=== PATIENT | male | born 1960 | race Caucasian/White ===

== ENCOUNTER 2019-01-14 07:44 | Day surgery (SDC) | payer BC ==
[~2019-01-14] VITALS: Ht 177.8 cm; Wt 86.6 kg
[2019-01-14] VITALS (12 sets, daily range): BP systolic 90–117; BP diastolic 56–80
[2019-01-14] MEDS ORDERED: MIDAZolam 5mg/ml 2ml vial IV PRN (08:05)
[2019-01-14] MEDS ORDERED: diphenhydrAMINE 25mg capsule PO PRN (08:05)
[2019-01-14] MEDS ORDERED: normal saline 1,000 ML IV SCH (08:05)
[2019-01-14] MEDS ORDERED: fentaNYL/PF 50MCG/1 ML 2ML syringe IV PRN (08:10)
[2019-01-14] MEDS ORDERED: DIGO125T79 PO (08:25)
[2019-01-14] MEDS ORDERED: CARV25TA2 PO (08:25)
[2019-01-14] MEDS ORDERED: DILT90TA22 PO (08:25)
[2019-01-14] MEDS ORDERED: CHOL50004 PO (08:25)
[2019-01-14] MEDS ORDERED: FURO-150 PO (08:25)
[2019-01-14] MEDS ORDERED: POTA10TA19 PO (08:25)
[2019-01-14] MEDS ORDERED: MULT-1085 PO (08:25)
[2019-01-14] MEDS ORDERED: LISI2.5T2 PO (08:25)
[2019-01-14] MEDS ORDERED: APIX5TAB3 PO (08:25)
[2019-01-14 08:44] LABS: BASOPHILS % (AUTO) 0.7 % (0-1); EOSINOPHILS # (AUTO) 0.1 X10'3 (0-0.9); EOSINOPHILS % (AUTO) 2.9 % (0-6); HEMATOCRIT 44.7 % (42.0-52.0); HEMOGLOBIN 15.1 g/dl (14.0-17.9); LYMPHOCYTES # (AUTO) 1.5 X10'3 (1.1-4.8); LYMPHOCYTES % (AUTO) 33.8 % (21-51); MEAN CORPUSCULAR HEMOGLOBIN 32.7 PG (27.0-31.0); MEAN CORPUSCULAR HGB CONC 33.8 g/dL (33.0-36.5); MEAN CORPUSCULAR VOLUME 96.9 FL (78-98); MONOCYTES # (AUTO) 0.5 X10'3 (0-0.9); MONOCYTES % (AUTO) 10.8 % (2-12); NEUTROPHILS # (AUTO) 2.3 X10'3 (1.8-7.7); NEUTROPHILS % (AUTO) 51.8 % (42-75); PLATELET COUNT 181 X10'3 (140-440); RED BLOOD COUNT 4.61 X10'6 (4.70-6.10); RED CELL DISTRIBUTION WIDTH 12.3 % (11.5-14.5); WHITE BLOOD COUNT 4.4 X10'3 (4.5-11.0)
[2019-01-14 08:53] LABS: ANION GAP 8 (8-16); BLOOD UREA NITROGEN 11 MG/DL (7-18); BUN/CREATININE RATIO 12.9 (5.4-32.0); CALCIUM 8.8 MG/DL (8.5-10.1); CHLORIDE 102 MMOL/L (99-107); CREATININE 0.85 MG/DL (0.60-1.10); GLUCOSE 114 MG/DL (70-104); MAGNESIUM 1.9 MG/DL (1.5-2.4); SODIUM 137 MMOL/L (135-145); TOTAL CARBON DIOXIDE 26.8 MMOL/L (24-32); eGFR > 90 ML/MIN
[2019-01-14] MEDS: amiodarone 150mg/dext, iso-os 100 ML IV SCH ×2 (12:36→13:26)
== END 2019-01-14 14:35 | disposition home or self-care (01) ==
LOC: SSTAY O 07:44
PROVIDERS: ATTEND Internal Medicine Cardiovascular Disease
DX: I48.1 Persistent atrial fibrillation (principal); I42.0 Dilated cardiomyopathy; I50.9 Heart failure, unspecified; G47.30 Sleep apnea, unspecified; Z88.8 Allergy status to other drugs, medicaments and biological substances; Z79.899 Other long term (current) drug therapy; Z72.89 Other problems related to lifestyle; Z82.49 Family history of ischemic heart disease and other diseases of the circulatory system
CPT/HCPCS: 36415; 80048; 83735; 85025; 85610; 92960; 93005; J0282; J2250; J3010; J7030

== ENCOUNTER 2019-02-18 07:44 | Day surgery (SDC) | payer BC ==
[2019-02-18] VITALS (11 sets, daily range): BP systolic 92–119; BP diastolic 57–85
[~2019-02-18] VITALS: Ht 177.8 cm; Wt 87.8 kg
[~2019-02-18 07:44] MED LIST: APIX5TAB3 PO; CARV25TA2 PO; CHOL50004 PO; DIGO125T79 PO; DILT90TA22 PO; FURO-150 PO; LISI2.5T2 PO; MULT-1085 PO; POTA10TA19 PO
[2019-02-18] MEDS ORDERED: normal saline 1000ml 1,000 ML IV SCH (08:05)
[2019-02-18] MEDS ORDERED: MIDAZolam 5mg/5ml vial IV ONE (08:05)
[2019-02-18] MEDS ORDERED: fentaNYL/PF 50MCG/1 ML 2ML syringe IV ONE (08:10)
[2019-02-18] MEDS ORDERED: AMIO200T36 (08:11)
[2019-02-18] MEDS ORDERED: LOSARTAN PO (08:11)
[2019-02-18 08:38] LABS: BASOPHILS % (AUTO) 0.9 % (0-1); EOSINOPHILS # (AUTO) 0.3 X10'3 (0-0.9); EOSINOPHILS % (AUTO) 5.4 % (0-6); HEMATOCRIT 43.6 % (42.0-52.0); HEMOGLOBIN 14.8 g/dl (14.0-17.9); LYMPHOCYTES # (AUTO) 1.3 X10'3 (1.1-4.8); LYMPHOCYTES % (AUTO) 25.4 % (21-51); MEAN CORPUSCULAR HEMOGLOBIN 32.7 PG (27.0-31.0); MEAN CORPUSCULAR HGB CONC 33.8 g/dL (33.0-36.5); MEAN CORPUSCULAR VOLUME 96.8 FL (78-98); MEAN PLATELET VOLUME 7.5 FL (7.4-10.4); MONOCYTES # (AUTO) 0.7 X10'3 (0-0.9); MONOCYTES % (AUTO) 12.8 % (2-12); NEUTROPHILS # (AUTO) 2.9 X10'3 (1.8-7.7); NEUTROPHILS % (AUTO) 55.5 % (42-75); PLATELET COUNT 212 X10'3 (140-440); RED BLOOD COUNT 4.51 X10'6 (4.70-6.10); RED CELL DISTRIBUTION WIDTH 14.1 % (11.5-14.5); WHITE BLOOD COUNT 5.2 X10'3 (4.5-11.0)
[2019-02-18 08:42] LABS: ALBUMIN 4.1 G/DL (3.4-5.0); ANION GAP 7 (8-16); BLOOD UREA NITROGEN 19 MG/DL (7-18); BUN/CREATININE RATIO 19.4 (5.4-32.0); CALCIUM 9.4 MG/DL (8.5-10.1); CHLORIDE 105 MMOL/L (99-107); CREATININE 0.98 MG/DL (0.60-1.10); GLUCOSE 127 MG/DL (70-104); POTASSIUM 4.2 MMOL/L (3.5-5.1); SODIUM 140 MMOL/L (135-145); TOTAL CARBON DIOXIDE 27.8 MMOL/L (24-32); eGFR 79 ML/MIN
== END 2019-02-18 10:40 | disposition home or self-care (01) ==
LOC: SSTAY O 07:44
PROVIDERS: ATTEND Internal Medicine Cardiovascular Disease
DX: I48.1 Persistent atrial fibrillation (principal); G47.33 Obstructive sleep apnea (adult) (pediatric); Z98.890 Other specified postprocedural states; Z85.820 Personal history of malignant melanoma of skin; F17.290 Nicotine dependence, other tobacco product, uncomplicated; Z72.89 Other problems related to lifestyle; Z79.899 Other long term (current) drug therapy; Z88.8 Allergy status to other drugs, medicaments and biological substances; Z82.49 Family history of ischemic heart disease and other diseases of the circulatory system; Z80.0 Family history of malignant neoplasm of digestive organs
CPT/HCPCS: 36415; 80048; 83735; 85025; 85610; 92960; 93005; J2250; J3010; J7030